=== PATIENT | male | born 1955 | race Caucasian/White ===

== ENCOUNTER 2020-05-03 10:09 | Observation (INO) ==
[2020-05-03] MEDS ORDERED: fentaNYL CITRATE/PF 50 MCG/ML AMPUL IM ONE (10:27)
[2020-05-03] MEDS ORDERED: MIDAZOLAM HCL/PF 5 MG/ML VIAL IM ONE (10:27)
[2020-05-03] MEDS ORDERED: fentaNYL CITRATE/PF 50 MCG/ML AMPUL ONE (10:28)
[2020-05-03] MEDS ORDERED: MIDAZOLAM HCL/PF 5 MG/ML VIAL ONE (10:28)
--- NOTE | 2020-05-03 10:41 | ERNOTE ---
Neuro HPI ER Record Date of Service: 05/03/20 Presenting Symptoms: weakness, other - Agitation Time Seen by Provider: 05/03/20 10:22 Source: EMS Exam Limitations: clinical condition Allergies/Adverse Reactions: Allergies Allergy/AdvReac Type Severity Reaction Status Date / Time diltiazem Allergy Verified 05/03/20 12:02 amiodarone AdvReac Verified 05/03/20 12:02 Home Medications: HOME MEDICATIONS Apixaban [Eliquis] 5 mg PO BID 05/03/20 [Last Taken Unknown] Atorvastatin Calcium 40 mg PO DAILY 05/03/20 [Last Taken Unknown] Citalopram Hydrobromide [Citalopram HBr] 40 mg PO DAILY 05/03/20 [Last Taken Unknown] Clopidogrel Bisulfate [Plavix] 75 mg PO DAILY 05/03/20 [Last Taken Unknown] Glimepiride 8 mg PO DAILY 05/03/20 [Last Taken Unknown] amLODIPine BESYLATE [Norvasc] 10 mg PO DAILY 05/03/20 [Last Taken Unknown] busPIRone HCL [Buspar] 5 mg PO PRN PRN 05/03/20 [Last Taken Unknown] - History of Present Illness Narrative: This patient is a 65-year-old gentleman who arrived by ambulance with complaint of altered mental status. He was found on the floor prior to arrival. He was reportedly agitated and not using his right side. He was last seen normal at 9 PM, about 13 hours ago. He has a history of hypertension and diabetes. He has a pacemaker and is on Eliquis. He is reportedly noncompliant and does not take his medications. He had a blood sugar of "high" in the ambulance. He was put on nasal cannula with nasal trumpet. They started an IO. The IO was pulled out when the patient got here. There was no known problem prior to the episode. Review of Systems - Narrative Narrative: Unable as the patient is nonverbal. Medical History (Last Updated 05/03/20 @ 12:01 by Danish Choudhary RN) Depression Diabetes HTN (hypertension) Surgical History: Surgical History (Last Updated 05/03/20 @ 12:00 by Danish Choudhary RN) History of cardiac radiofrequency ablation Rotator cuff arthropathy of both shoulders Family History: Family History (Last Updated 05/03/20 @ 12:02 by Danish Choudhary RN) Other No pertinent past medical history Physical Exam - Physical Exam General Appearance: Present: other - The patient is moderately obese. He is combative. He is not using the right side. The right arm is flexed. The right leg is extended. Head Exam: Present: normal inspection Eye Exam: Other: bilateral - He does bring the eyes to midline. They seem to deviate to the right most of the time. The pupils are equal. Ears, Nose, Throat: Present: normal ENT inspection Neck: Present: normal inspection, supple Respiratory: Present: other - He has snoring respirations. His oxygen saturation is good. He has nasal cannula. Lungs are difficult to hear but seem clear anteriorly. Cardiovascular/Chest: Present: tachycardia Gastrointestinal/Abdominal: Present: soft Male Genitals Exam: Present: other - Normal visually Back Exam: Present: normal inspection - No deformity or injury. Extremity Exam: Present: normal inspection - No evidence of injury. Neurological Exam: Present: other - See above. He is combative and not moving the right side. The right upper extremity is flexed. The right lower extremity is extended. He resists movement of the right side. There is no facial asymmetry. The left arm and leg are moving but not necessarily localizing pain. Skin Exam: Present: normal color, warm/dry - No obvious injury or rash. Davis Coma Scale - Assess Eye Opening: To Pain Motor: Abnormal Flexion Verbal: None - Total Coma Scale Total: 6 Progress - Date and Time Seen: Date and Time: 05/03/20 10:39 I was able to speak with his by phone. She is coming in to see him. She said that he does not want any heroic interventions. He will be DNR/DNI. 05/03/20 11:10 Patient was quite agitated. He was put into restraints as we had already lost the interosseous access. He was put into restraints for his protection. He was then sedated. He is doing better. I saw the patient [id number]. 05/03/20 11:49 His is here now. She definitely wants comfort care only. She does not even want him to have insulin. 05/03/20 12:52 I spoke with the about comfort care. That is her wish. I spoke with Dr. Leblanc who agrees to admit the patient. - Results and Orders Patient's Lab Results:: I have reviewed the patient's lab results. Results and Orders: Laboratory Tests 05/03/20 05/03/20 05/03/20 10:45 10:45 10:45 WBC 12.6 H Hgb 16.6 Hct 47.5 Plt Count 226 Immature Gran % (Auto) 1.00 H Neutrophils % 88.8 H Lymphocytes % 6.3 L Monocytes % 3.3 Eosinophils % 0.2 Basophils % 0.4 Nucleated RBC % 0.0 PT 10.6 INR (Anticoag Therapy) 1.07 PTT (Brandon) 22.5 L VBG pH Sodium 134 Plasma Sodium 144 H Potassium 3.1 L Chloride 96 L Carbon Dioxide 17.6 L Anion Gap 23.5 H BUN 20 Creatinine 1.59 H Est GFR (Non-Af Amer) 47 L BUN/Creatinine Ratio 12.6 Random Glucose 731 H Lactic Acid, Venous Calcium 11.6 H Calcium Adj for Albumin 12.0 H Total Bilirubin 0.4 AST 35 ALT 40 Alkaline Phosphatase 117 Total Protein 7.4 Albumin 3.1 L Serum Ketones Negative SARS-CoV-2 (PCR) 05/03/20 05/03/20 05/03/20 10:45 10:45 10:45 WBC Hgb Hct Plt Count Immature Gran % (Auto) Neutrophils % Lymphocytes % Monocytes % Eosinophils % Basophils % Nucleated RBC % PT INR (Anticoag Therapy) PTT ([place]) VBG pH 7.342 Sodium Plasma Sodium Potassium Chloride Carbon Dioxide Anion Gap BUN Creatinine Est GFR (Non-Af Amer) BUN/Creatinine Ratio Random Glucose Lactic Acid, Venous 10.2 H* Calcium Calcium Adj for Albumin Total Bilirubin AST ALT Alkaline Phosphatase Total Protein Albumin Serum Ketones SARS-CoV-2 (PCR) Not detected - Vital Signs Patient's Vital Signs:: I have reviewed the patient's vital signs. - EKG EKG #1 EKG read: Interp. by me EKG Comments: Supraventricular tachycardia. Rate 146 Lots of movement artifact - CT/Ultrasound CT/Ultrasound Narrative: There is difficulty with the radiology director strategic account management system. Dr. Pompa called to say that there were age-related changes with no acute findings. Departure Clinical Impression: Stroke - Departure Disposition: Still a patient Condition: Critical Face to Face Encounter Time Seen by Provider: 05/03/20 10:22 Patient Problems: All Active Problems (Last Updated 05/03/20 @ 12:01 by Danish Choudhary RN) Agitation (Acute) Stroke (Acute) Certification: Yes Date of face to face encounter: 05/03/20 Encounter: Yes I certify patient is under my care: Yes Support for Clinical Findings: The patient is agitated Skilled services: Other - Not applicable Clinical Findings: The patient is agitated Support homebound status: Not applicable Homebound Reasons - Activity: Other - Not applicable Homebound Reasons - Physicial Limitations: Other - Not applicable Homebound Reasons - ADL's: Other - Not applicable Additional Comments: None [facility] Definition of homebound is:: Not applicable
[2020-05-03] MEDS ORDERED: INSULIN REGULAR, HUMAN 100 UNITS/ML VIAL IV ONE (10:45)
[2020-05-03 11:11] LABS: Hematocrit 47.5 % (42.0-52.0); Hemoglobin 16.6 gm/dL (13.5-18.0); Mean Cell Volume 86.4 fl (78-100); Mean Corpuscular Hemoglobin 30.2 pg (27-31); Mean Corpuscular Hgb Conc 34.9 g/dl (32-36); Mean Platelet Volume 10.8 fl (8-11.3); Neutrophil # 11.2 K/mm3 (1.3-6.0); Neutrophil % 88.8 % (42-75.0); Platelet Count 226 K/mm3 (150-450); Red Cell Distribution Width 13.8 % (11.5-14.0); White Blood Count 12.6 K/mm3 (4.0-10.5)
[2020-05-03] MEDS ORDERED: fentaNYL CITRATE/PF 50 MCG/ML AMPUL IV ONE (11:19)
[2020-05-03] MEDS ORDERED: MIDAZOLAM HCL/PF 5 MG/ML VIAL IV ONE ×2 (11:19→12:11)
[2020-05-03 11:26] LABS: Prothrombin Time (Patient) 10.6 Seconds (9.1-10.7)
[2020-05-03 11:27] LABS: INR 1.07 INR (0.92-1.08); Partial Thrombolplastin Time 22.5 Seconds (24-32)
[2020-05-03 11:35] LABS: ALT 40 U/L (19-67); AST 35 U/L (0-48); Albumin * 3.1 gm/dl (3.4-5.0); Alkaline Phosphatase * 117 U/L (50-170); Anion Gap 23.5 mmol/L (6.8-13.8); BUN/Creatinine Ratio 12.6 (9.0-21.6); Bilirubin, Total 0.4 mg/dL (0.0-1.1); Blood Urea Nitrogen 20 mg/dL (6-23); Calcium * 11.6 mg/dL (7.9-10.9); Carbon Dioxide 17.6 mmol/L (24-32.6); Chloride 96 mmol/L (97-106); Potassium 3.1 mmol/L (3.4-4.6); Sodium 134 mmol/L (132-142); Total Protein 7.4 gm/dL (6.2-8.2)
[2020-05-03 11:43] LABS: Glucose * 731 mg/dL (70-110)
[2020-05-03] MEDS: MORPHINE SULFATE 2 MG/ML DISP.SYRIN IV PRN ×4 (11:53→17:36)
[2020-05-03 12:14] VITALS: BP 174/010
[2020-05-03] MEDS ORDERED: MORPHINE SULFATE 2 MG/ML DISP.SYRIN IV ONE (12:24)
[2020-05-03] MEDS ORDERED: LORazepam 2 MG/ML DISP.SYRIN IV ONE (13:27)
[2020-05-03] MEDS ORDERED: ACETAMINOPHEN 650 MG SUPP.RECT RC PRN (13:38)
[2020-05-03] MEDS: LORazepam 2 MG/ML DISP.SYRIN IV PRN ×4 (16:13→23:28)
--- NOTE | 2020-05-03 18:22 | HP ---
Chief Complaint - Chief Complaint Date of Service: 05/03/20 Time of Service: 18:10 Chief Complaint: Stroke symptoms History of Present Illness: Ishan Lizama is a 65-year-old male who presented to ER following a major dense stroke. He has paralysis of the right side of his body. He has insulin-dependent diabetes but does not take his insulin. He has obstructive sleep apnea but will not wear his CPAP. He never checks his blood sugar. His states that she does not wish to intervene but just to do comfort measures only. Apparently there is a 10-year history of this behavior. Per her request we will not be doing any testing, checking her blood sugars although it was 710 in the emergency room. We will not do any physical occupational or speech consultations. He has been agitated and I have given him some morphine and some lorazepam and he is much more calm now. He does not seem to be in any distress at the moment. He will open his eyes when his name is called but he will not verbalize. It is thought that the stroke is taken out his Broca's speech area. Therefore comfort measures are instituted and ordered Medical History (Last Updated 05/03/20 @ 12:01 by Danish Choudhary RN) Depression Diabetes HTN (hypertension) Surgical History: Surgical History (Last Updated 05/03/20 @ 12:00 by Danish Choudhary RN) History of cardiac radiofrequency ablation Rotator cuff arthropathy of both shoulders Family History: Family History (Last Updated 05/03/20 @ 12:02 by Danish Choudhary RN) Other No pertinent past medical history Social History: (Last Updated 05/03/20 @ 14:58 by April Granger RN) Social History: Marital status: Marital status comment: Leyda household members: spouse Dietary Habits: well-balanced diet: rarely or never Review Of Systems (GEN) - Review of Systems Generalized/Overall Review: Present: Weakness EENTM: Present: No Symptoms Reported Respiratory: Present: No Symptoms Reported Cardiac: Present: No Symptoms Reported Abdominal: Present: No Symptoms Reported Genitourinary: Present: Incontinent Musculoskeletal: Present: No Symptoms Reported Neurological: Present: Parasthesia, Weakness Skin: Present: No Symptoms Reported, Dryness Endocrine: Present: No Symptoms Reported Immunizations: IMMUNIZATION HX Immunizations Up to Date No History of Influenza Vaccine More Information Required Hx Pneumococcal Vaccination More Information Required Allergies/Adverse Reactions: Allergies Allergy/AdvReac Type Severity Reaction Status Date / Time diltiazem Allergy Verified 05/03/20 12:02 amiodarone AdvReac Verified 05/03/20 12:02 Home Medications: HOME MEDICATIONS Apixaban [Eliquis] 5 mg PO BID 05/03/20 [Last Taken Unknown] Atorvastatin Calcium 40 mg PO DAILY 05/03/20 [Last Taken Unknown] Citalopram Hydrobromide [Citalopram HBr] 40 mg PO DAILY 05/03/20 [Last Taken Unknown] Clopidogrel Bisulfate [Plavix] 75 mg PO DAILY 05/03/20 [Last Taken Unknown] Glimepiride 8 mg PO DAILY 05/03/20 [Last Taken Unknown] amLODIPine BESYLATE [Norvasc] 10 mg PO DAILY 05/03/20 [Last Taken Unknown] busPIRone HCL [Buspar] 5 mg PO PRN PRN 05/03/20 [Last Taken Unknown] Exam - Exam Vital Signs: Vital Signs - Last Taken Temp 37 C 05/03/20 15:10 Pulse 125 H 05/03/20 15:10 Resp 40 H 05/03/20 15:10 BP 174/010 H 05/03/20 11:58 Pulse Ox 87 L 05/03/20 15:10 Constitutional: Present: Obtunded, Elderly, Looks Older than stated age Eye Exam: bilateral eye: normal inspection, PERRL, EOMI Neck: Present: non-tender, limited range of motion Back Exam: Present: normal inspection, no CVA tenderness, no vertebral tenderness Breasts: Present: Exam deferred Respiratory: Present: chest non-tender, lungs clear, normal breath sounds, no respiratory distress, no accessory muscle use Cardiovascular/Chest: Present: normal peripheral pulses, regular rate, rhythm, no chest tenderness, no edema, no gallop, no JVD, no murmur, no rub Peripheral Pulses: carotid (R): 2+, carotid (L): 2+, radial (R): 2+, radial (L): 2+ Abdomen: Present: Normal bowel sounds, soft, nontender, nondistended, no rebound tenderness, no hepatospenomegaly, no masses /Rectal: Present: Exam deferred Extremity: Present: other - Paralyzed right side of body. Left side motor function seems intact. Skin Exam: Present: normal color, warm/dry, no cyanosis Lymphatic: Present: no adenopathy Neurologic: Present: reel system operator II-XII nml as tested, normal cerebellar test Appearance: Present: disheveled Eye contact: Present: uncooperative - Unable to cooperate, other Thoughts: Present: incoherent Diagnostic Studies: Abnormal Lab Results 05/03/20 05/03/20 05/03/20 Range/Units 10:45 10:45 10:45 WBC 12.6 H (4.0-10.5) K/mm3 Immature Gran % (Auto) 1.00 H (0.001-0.429) % Immature Gran # (Auto) 0.12 H (0.000-0.0310) K/mm3 Neutrophils % 88.8 H (42-75.0) % Lymphocytes % 6.3 L (20-51) % Neutrophils # 11.2 H (1.3-6.0) K/mm3 Lymphocytes # 0.79 L (1.5-3.5) k/mm3 PTT (Brandon) 22.5 L (24-32) Seconds Plasma Sodium 144 H (130-142) mmol/L Potassium 3.1 L (3.4-4.6) mmol/L Chloride 96 L (97-106) mmol/L Carbon Dioxide 17.6 L (24-32.6) mmol/L Anion Gap 23.5 H (6.8-13.8) mmol/L Creatinine 1.59 H (0.4-1.4) mg/dL Est GFR (Non-Af Amer) 47 L (60-130) mL/min Random Glucose 731 H (70-110) mg/dL Lactic Acid, Venous (0.4-2.0) mmol/L Calcium 11.6 H (7.9-10.9) mg/dL Calcium Adj for Albumin 12.0 H (8.4-10.2) mg/dL Albumin 3.1 L (3.4-5.0) gm/dl 05/03/20 05/03/20 Range/Units 10:45 14:04 WBC (4.0-10.5) K/mm3 Immature Gran % (Auto) (0.001-0.429) % Immature Gran # (Auto) (0.000-0.0310) K/mm3 Neutrophils % (42-75.0) % Lymphocytes % (20-51) % Neutrophils # (1.3-6.0) K/mm3 Lymphocytes # (1.5-3.5) k/mm3 PTT (Brandon) (24-32) Seconds Plasma Sodium (130-142) mmol/L Potassium (3.4-4.6) mmol/L Chloride (97-106) mmol/L Carbon Dioxide (24-32.6) mmol/L Anion Gap (6.8-13.8) mmol/L Creatinine (0.4-1.4) mg/dL Est GFR (Non-Af Amer) (60-130) mL/min Random Glucose (70-110) mg/dL Lactic Acid, Venous 10.2 H* 3.8 H* (0.4-2.0) mmol/L Calcium (7.9-10.9) mg/dL Calcium Adj for Albumin (8.4-10.2) mg/dL Albumin (3.4-5.0) gm/dl Laboratory Results WBC 12.6 K/mm3 (4.0-10.5) H 05/03/20 10:45 RBC 5.50 M/mm3 (4.7-6.0) 05/03/20 10:45 Hgb 16.6 gm/dL (13.5-18.0) 05/03/20 10:45 Hct 47.5 % (42.0-52.0) 05/03/20 10:45 MCV 86.4 fl (78-100) 05/03/20 10:45 MCH 30.2 pg (27-31) 05/03/20 10:45 MCHC 34.9 g/dl (32-36) 05/03/20 10:45 RDW 13.8 % (11.5-14.0) 05/03/20 10:45 Plt Count 226 K/mm3 (150-450) 05/03/20 10:45 MPV 10.8 fl (8-11.3) 05/03/20 10:45 Immature Gran % (Auto) 1.00 % (0.001-0.429) H 05/03/20 10:45 Immature Gran # (Auto) 0.12 K/mm3 (0.000-0.0310) H 05/03/20 10:45 Neutrophils % 88.8 % (42-75.0) H 05/03/20 10:45 Lymphocytes % 6.3 % (20-51) L 05/03/20 10:45 Monocytes % 3.3 % (0.0-9) 05/03/20 10:45 Eosinophils % 0.2 % (0.0-3.0) 05/03/20 10:45 Basophils % 0.4 % (0.0-1.0) 05/03/20 10:45 Nucleated RBC % 0.0 k/mm3 (0-1) 05/03/20 10:45 Neutrophils # 11.2 K/mm3 (1.3-6.0) H 05/03/20 10:45 Lymphocytes # 0.79 k/mm3 (1.5-3.5) L 05/03/20 10:45 Monocytes # 0.4 k/mm3 (0.0-1.0) 05/03/20 10:45 Eosinophils # 0.0 k/mm3 (0.0-0.7) 05/03/20 10:45 Absolute Basophils 0.1 k/mm3 (0.0-0.1) 05/03/20 10:45 PT 10.6 Seconds (9.1-10.7) 05/03/20 10:45 INR (Anticoag Therapy) 1.07 INR (0.92-1.08) 05/03/20 10:45 PTT (Brandon) 22.5 Seconds (24-32) L 05/03/20 10:45 VBG pH 7.342 (7.32-7.43) 05/03/20 10:45 Sodium 134 mmol/L (132-142) 05/03/20 10:45 Plasma Sodium 144 mmol/L (130-142) H 05/03/20 10:45 Potassium 3.1 mmol/L (3.4-4.6) L 05/03/20 10:45 Chloride 96 mmol/L (97-106) L 05/03/20 10:45 Carbon Dioxide 17.6 mmol/L (24-32.6) L 05/03/20 10:45 Anion Gap 23.5 mmol/L (6.8-13.8) H 05/03/20 10:45 BUN 20 mg/dL (6-23) 05/03/20 10:45 Creatinine 1.59 mg/dL (0.4-1.4) H 05/03/20 10:45 Est GFR (Non-Af Amer) 47 mL/min (60-130) L 05/03/20 10:45 BUN/Creatinine Ratio 12.6 (9.0-21.6) 05/03/20 10:45 Random Glucose 731 mg/dL (70-110) H 05/03/20 10:45 Lactic Acid, Venous 3.8 mmol/L (0.4-2.0) H* 05/03/20 14:04 Calcium 11.6 mg/dL (7.9-10.9) H 05/03/20 10:45 Calcium Adj for Albumin 12.0 mg/dL (8.4-10.2) H 05/03/20 10:45 Total Bilirubin 0.4 mg/dL (0.0-1.1) 05/03/20 10:45 AST 35 U/L (0-48) 05/03/20 10:45 ALT 40 U/L (19-67) 05/03/20 10:45 Alkaline Phosphatase 117 U/L (50-170) 05/03/20 10:45 Total Protein 7.4 gm/dL (6.2-8.2) 05/03/20 10:45 Albumin 3.1 gm/dl (3.4-5.0) L 05/03/20 10:45 Serum Ketones Negative (NEGATIVE) 05/03/20 10:45 SARS-CoV-2 (PCR) Not detected (NotDetected) 05/03/20 10:45 Assessment/Plan - Narrative Narrative: Comfort measures only - Assessment/Plan (1) Uncontrolled insulin dependent diabetes mellitus Problem: Acute (2) Obstructive sleep apnea Problem: Acute (3) Obesity (BMI 35.0-39.9 without comorbidity) Problem: Acute (4) Agitation Problem: Acute (5) Stroke Problem: Acute
[2020-05-04] MEDS: LORazepam 2 MG/ML DISP.SYRIN IV PRN ×6 (01:30→16:55)
[2020-05-04] MEDS: MORPHINE SULFATE 2 MG/ML DISP.SYRIN IV PRN ×3 (04:02→21:24)
--- NOTE | 2020-05-04 18:12 | PN ---
Subjective - Date and Time Seen Date: 05/04/20 Time: 09:30 Subjective Narrative: Mr. Olson seems to be laboring with breathing more and he has a lot of rhonchi and stridor. Nursing suctioned him and it did help quite a lot. He is tachypneic, and tachycardiac. He is obtunded to comatose. At times he will arouse and become a agitated. He seems to be comfortable with the lorazepam. Objective - Review of Systems Generalized/Overall Review: Reports: No Symptoms Reported EENTM: Reports: No Symptoms Reported Respiratory: Reports: Cough, Shortness of Breath, Stridor, Wheezing Cardiac: Reports: No Symptoms Reported Abdominal: Reports: No Symptoms Reported Genitourinary Symptoms: Reports: No Symptoms Reported Musculoskeletal Complaints: Reports: No Symptoms Reported Neurological: Reports: Other - Obtunded to comatose Skin: Reports: No Symptoms Reported Endocrine: Reports: No Symptoms Reported - Vitals Vitals: Last Vital Signs Temp 37 C 05/03/20 15:10 Pulse 112 H 05/04/20 01:36 Resp 18 05/04/20 01:36 BP 174/010 H 05/03/20 11:58 Pulse Ox 94 05/04/20 01:36 - Exam Constitutional: Present: Obtunded, Elderly ENT Exam: Present: normal ENT inspection, other - Disconjugate gaze Neck: Present: non-tender Breasts: Present: Exam deferred Respiratory: Present: chest non-tender, crackles, rales, rhonchi, stridor, wheezing Cardiovascular/Chest: Present: normal peripheral pulses, regular rate, rhythm, no chest tenderness, no edema, no gallop, no JVD, no murmur, no rub Abdomen: Present: Normal bowel sounds, soft, nontender, nondistended, no rebound tenderness, no hepatospenomegaly /Rectal: Present: Exam deferred Extremity: Present: normal range of motion Skin Exam: Present: diaphoresis Lymphatic: Present: no adenopathy Appearance: Present: disheveled Eye contact: Present: other - Unable to follow commands Thoughts: Absent: normal thought pattern, no apparent hallucination, auditory hallucinations Assessment/Plan Plan Narrative: 1. Continue comfort measures only. 2. Add suctioning as needed 3. No interventional care - Problems/Diagnosis (1) Uncontrolled insulin dependent diabetes mellitus Problem: Acute (2) Obstructive sleep apnea Problem: Acute (3) Obesity (BMI 35.0-39.9 without comorbidity) Problem: Acute (4) Agitation Problem: Acute (5) Stroke Problem: Acute Qualifiers: CVA mechanism: embolism Precerebral and cerebral artery: middle cerebral artery Laterality of affected vessel: right Qualified Code(s): I63.411 - Cerebral infarction due to embolism of right middle cerebral artery
[2020-05-05] MEDS: MORPHINE SULFATE 2 MG/ML DISP.SYRIN IV PRN ×5 (00:23→08:49)
[2020-05-05] MEDS ORDERED: ATROPINE SULFATE 50 DROP BTL SL PRN (07:35)
[2020-05-05] MEDS ORDERED: ATROPINE SULFATE 150 DROP BTL SL PRN (08:08)
--- NOTE | 2020-05-05 11:15 | DS ---
Discharge Summary - Provider Primary Care Provider: Ignacia Montes (actual) Admitting Clinician: Bethel Leblanc Attending Physician on Admission: Bethel Leblanc Pronouncing Clinician: Ghazal Mccollum - Date and Time Date of : 05/05/20 Time of : 09:29 - Diagnosis/Cause of (1) Stroke Problems: Acute (2) Uncontrolled insulin dependent diabetes mellitus Problems: Acute (3) Obstructive sleep apnea Problems: Acute (4) Obesity (BMI 35.0-39.9 without comorbidity) Problems: Acute (5) Agitation Problems: Acute - Summary Details (narrative): Mr. Olson is a 65-year-old male who was found at home on the floor unresponsive. EMS was summoned and he was brought to the hospital. He had flaccid paralysis on the left side of his body. CT of the head was negative for stroke. However, it probably would not show an acute embolic stroke that early. There is no hemorrhage. He has been a noncompliant insulin-dependent diabetic for the last 10 years. His reports that he would not take his medications. He has obstructive sleep apnea and had been prescribed CPAP but has not been using that either. His has requested comfort measures only which were provided. His blood sugar in ER was 710. No lab was done after admission. Mr. Olson seemed to be laboring with breathing more and he has a lot of rhonchi and stridor. Nursing suctioned him and it did help quite a lot. He was tachypneic, and tachycardiac. He obtunded to comatose. He seems to be co mfortable with the lorazepam. Started suctioning him yesterday which helped with the stridor. He had increased secretions earlier this morning and oral Atropine was given. He was found at 9:29 AM this morning and pronounced at that time. Procedures Performed: none - Additional Data Confirmation of as documented by pronouncing clinician: no pulse, no respirations, no heart sounds, pupils fixed and dilated Family: contacted Practitioner(Attending/PCP) notified: Yes Attending physician: Bethel Leblanc Was code activated: No Autopsy requested: No Contact Officer notified: No Organ Bank notified: No Advance Directives: Yes Hospice patient: No
== END 2020-05-05 09:29 | disposition expired ==
LOC: ER 10:09 → MS 10:09
PROVIDERS: ADMIT Family Medicine; ATTEND Family Medicine